=== PATIENT | male | born 1975 | race Caucasian/White ===

== ENCOUNTER → 2017-12-30 | Outpatient (CLI) | payer BC ==
[2017-12-30 10:10] LABS: HEMATOCRIT 42.2 % (37.9-51.0); MEAN CORPUSCULAR HEMOGLOBIN 31.4 pg (27.0-33.4); MEAN CORPUSCULAR HGB CONC 35.5 g/dL (32.0-36.0); MEAN CORPUSCULAR VOLUME 88 fl (80-97); PLATELET COUNT 224 10^3/uL (150-450); RED BLOOD COUNT 4.78 10^6/uL (4.35-5.55); RED CELL DISTRIBUTION WIDTH 12.8 % (11.5-14.0); WHITE BLOOD COUNT 4.3 10^3/uL (4.0-10.5)
[2017-12-30 10:35] LABS: ALANINE AMINOTRANSFERASE 38 U/L (21-72); ALBUMIN 4.1 g/dL (3.5-5.0); ALKALINE PHOSPHATASE 65 U/L (38-126); ANION GAP 9 (5-19); ASPARTATE AMINO TRANSFERASE 22 U/L (17-59); BILIRUBIN,DIRECT 0.4 mg/dL (0.0-0.4); BILIRUBIN,TOTAL 0.7 mg/dL (0.2-1.3); BLOOD UREA NITROGEN 9 mg/dL (7-20); CALCIUM 10.1 mg/dL (8.4-10.2); CARBON DIOXIDE 28 mmol/L (22-30); CHLORIDE 104 mmol/L (98-107); CHOLESTEROL 217.48 mg/dL (0-200); GLUCOSE 94 mg/dL (75-110); POTASSIUM 4.9 mmol/L (3.6-5.0); SODIUM 141.4 mmol/L (137-145); TOTAL PROTEIN 6.7 g/dL (6.3-8.2); TRIGLYCERIDES 173 mg/dL (<150)
[2017-12-30 10:46] LABS: DIRECT LDL 134 mg/dL (<100)
[2017-12-30 10:47] LABS: VLDL CHOLESTEROL 34.6 mg/dL (10-31)
[2017-12-31 14:38] LABS: FOLLICLE STIMULATING HORMONE 18.5 mIU/mL (1.5-12.4); LUTEINIZING HORMONE 21.6 mIU/mL (1.7-8.6); PROLACTIN 20.6 ng/mL (4.0-15.2)
[2017-12-31 18:22] LABS: ESTRADIOL <5.0 pg/mL (7.6-42.6); PROSTATE SPECIFIC ANTIGEN 0.5 ng/mL (0.0-4.0); PSA FREE 0.17 ng/mL
[2018-01-01 06:05] LABS: TESTOSTERONE FREE (DIRECT) 5.5 pg/mL (6.8-21.5)
== END ==
LOC: OD 09:12
PROVIDERS: ATTEND Urology
DX: E29.1 Testicular hypofunction (principal)
CPT/HCPCS: 36415; 80053; 80061; 82670; 83001; 83002; 84146; 84154; 84402; 84403; 85027